=== PATIENT | female | born 1935 | race Caucasian/White ===

== ENCOUNTER 2018-08-11 16:52 | Emergency (ER) | payer OTHER ==
--- NOTE | 2018-08-11 16:58 | PDOC ---
History of Present Illness - General Chief Complaint: Laceration Stated Complaint: LEFT GAXIOLA LAC History Source: Patient, Family - History of Present Illness Initial Comments: 08/11/18 17:07 The patient is an 83 year old female with a PMH of HTN who presents to our ED s/ p fall. Patient was walking up a set of stairs from her backyard to her house when she caught her foot in between a crevice between the ground and the bottom of the stairs falling forward. Patient did not fall completely and was able to catch herself and stand upright. No head trauma, no LOC. Now complaining of a leg laceration. NKDA As per EMR, patient last evaluated in our ED in 2012 for a mechanical fall. Patient states that before today she has not fallen since that time, Past History - Past Medical History Allergies/Adverse Reactions: Allergies Allergy/AdvReac Type Severity Reaction Status Date / Time No Known Allergies Allergy Verified 08/11/18 16:53 Home Medications: Ambulatory Orders Enalapril Maleate [Vasotec] 30 mg PO DAILY 04/04/13 Metoprolol Succinate [Toprol XL] 50 mg PO DAILY 04/04/13 Montelukast Sodium [Singulair] 5 mg PO DAILY 07/31/14 HTN: Yes - Suicide/Smoking/Psychosocial Hx Smoking Status: No Smoking History: Never smoked Number of Cigarettes Smoked Daily: 0 Review of Systems - Review of Systems Constitutional: No: Chills, Fever HEENTM: No: Blurred Vision Respiratory: No: Cough, Shortness of Breath Cardiac (ROS): No: Chest Pain, Lightheadedness, Palpitations, Syncope ABD/GI: No: Blood Streaked Bowels, Constipated, Diarrhea, Vomiting : No: Burning, Dysuria *Physical Exam - Physical Exam General Appearance: Yes: Nourished, Appropriately Dressed HEENT: positive: Normal Voice, Hearing Grossly Normal Neck: positive: Trachea midline, Supple Respiratory/Chest: positive: Lungs Clear, Normal Breath Sounds Cardiovascular: positive: S1, S2. negative: JVD Vascular Pulses: Doralis-Pedis (L): 2+ Gastrointestinal/Abdominal: positive: Normal Bowel Sounds, Soft Extremity: positive: Other (7 cm L anterior gaxiola laceration, exposed fat w/out tendon exposure) Integumentary: positive: Normal Color, Dry, Warm Neurologic: positive: Fully Oriented, Alert Medical Decision Making - Medical Decision Making 08/11/18 17:15 83 year old female with LLE laceration s/p mechanical fall. No LOC or head trauma. Hypertensive (179/100) @ presentation. Will obtain LLE X-ray to r/o foriegn body and wound closure. Reassess. 08/11/18 17:34 Wet read of LLE XR shows no foreign body. 08/11/18 18:47 Wound closed using 3 (3.0 absorbable) deep dermal sutures and 13 (3.0 nylon) simple interrupted sutures. NVI pre and post closure. Patient tolerated procedure well with no complications. Patient remains hypertensive, asymptomatic (no XIONG, no blurry vision) will see PMD in the next 2 days for further evaluation. *DC/Admit/Observation/Transfer Diagnosis at time of Disposition: Leg laceration - Discharge Dispostion Disposition: HOME Condition at time of disposition: Good Decision to Admit order: No - Referrals Referrals: Prasanth Salgado MD [Primary Care Provider] - - Patient Instructions Printed Discharge Instructions: DI for Laceration Repair Additional Instructions: keep wound clean and dry for 48 hours. then you may wash with mild soap and water, apply bacitracin ointment twice daily. return for redness, swelling fever or any signs of infection. you should return to emergency room in 7 - 10 days for suture removal. take ibuprofen 400 mg every 8 hrs as needed for pain. you may also take tylenol 500 mg every 6 hrs as needed for pain. - Post Discharge Activity
[2018-08-11] MEDS ORDERED: DIPHTH,PERTUSS(ACELL),TET 0.5 ML DISP.SYRIN IM ONE (17:10)
[2018-08-11 17:12] VITALS: TEMP 97.7; BMI 28.3
--- NOTE | 2018-08-11 18:04 | PDOC ---
Attending Attestation - Resident Resident Name: GeorgeRadha - ED Attending Attestation I have performed the following: I have examined & evaluated the patient, The case was reviewed & discussed with the resident, I agree w/resident's findings & plan, Exceptions are as noted - HPI HPI: 08/11/18 18:01 83 yo F with s/p fall up stairs, sustained left gaxiola laceration. has been ambulating without difficulty. no head trauma. no other complaints of neck or back pain. no upper ext injury or pain. happened just prior to arrival. - Physicial Exam PE: 08/11/18 18:02 awake alert head atraumatic. lungs clear bilaterally heart rrr no mrg abd soft nt nd. ext wwp. left anterior lower mid gaxiola with large laceration 2 inches, horizontal into sub cut. no bony step off. distally n/v intact. pf/ df 5/5. 2 + dp/ pt pulses. no midline spinal tenderness. nuero speech clear. alert oriented x 3. moves all ext. facies symmetric. skin see description lac above. - Medical Decision Making 08/11/18 18:03 plan xray r/o underlying fx/ fb. lac repair layered closer after irrigation. sterile dressing. dc home.
[2018-08-11 18:53] VITALS: BP 190/100; PULSE 70
== END 2018-08-11 18:54 | disposition home or self-care (01) ==
LOC: FER 16:52
PROC: 0HQLXZZ Repair Left Lower Leg Skin, External Approach (ICD-10-PCS; principal; 2018-08-11)
DX: S81.812A Laceration without foreign body, left lower leg, initial encounter (principal); W10.9XXA Fall (on) (from) unspecified stairs and steps, initial encounter; Y93.89 Activity, other specified; Y92.008 Other place in unspecified non-institutional (private) residence as the place of occurrence of the external cause
CPT/HCPCS: 73590-TC-LT-FY; 90715; 99283-25

== ENCOUNTER 2018-08-25 11:58 | Emergency (ER) | payer OTHER ==
[2018-08-25 12:17] VITALS: BP 139/78; PULSE 78; TEMP 97.8; BMI 29.0
--- NOTE | 2018-08-25 14:04 | PDOC ---
Suture Removal/Wound Check HPI - History of Present Illness Chief Complaint: Suture/Staple Removal(Here) Stated Complaint: SUTURE REMOVAL LEFT LOWER LEG Time Seen by Provider: 08/25/18 13:11 History Source: Yes: Patient - Previous ED Treatment Type of procedure performed on last visit: Yes: Laceration Repair - Onset of Previous Treatment Comment:: 08/25/18 14:43 83f coming to the ED after 20 days to get sutures removed over her left gaxiola. She had 3 deep absorbable sutures placed in the ED as well as [address] Salgado on Monday who removed a few of them (she's not sure how many) but came back today to get the rest out as the site is red and swollen. She denies any pain, chills, fever or drainage. Past History - Past Medical History Allergies/Adverse Reactions: Allergies Allergy/AdvReac Type Severity Reaction Status Date / Time No Known Allergies Allergy Verified 08/25/18 12:00 Home Medications: Ambulatory Orders Enalapril Maleate [Vasotec] 30 mg PO DAILY 04/04/13 Metoprolol Succinate [Toprol XL] 50 mg PO DAILY 04/04/13 Cephalexin Monohydrate [Keflex -] 500 mg PO Q6H 7 Days #28 capsule 08/25/18 Sulfamethoxazole/Trimethoprim [Bactrim Ds -] 1 tab PO BID #14 tablet 08/25/18 COPD: No HTN: Yes Other medical history: SKIN CANCER - Suicide/Smoking/Psychosocial Hx Smoking Status: No Smoking History: Never smoked Number of Cigarettes Smoked Daily: 0 Information on smoking cessation initiated: No Hx Alcohol Use: Yes (social) Drug/Substance Use Hx: No Substance Use Type: Alcohol Suture Removal/Wound Check PE - Physical Exam Laceration/Wound Check Symptoms: reports: Redness (, necrotic tissue) Pain Intensity: 0 Location of Laceration/Wound: left: Leg Pain Radiation: None *Review of Systems - Review of Systems Able to Perform ROS?: Yes Constitutional: No: Symptoms Reported HEENTM: No: Symptoms Reported Respiratory: No: Symptoms reported Cardiac (ROS): No: Symptoms Reported ABD/GI: No: Symptoms Reported : No: Symptoms Reported Musculoskeletal: No: Symptoms Reported Integumentary: Yes: See HPI Neurological: No: Symptoms reported All Other Systems: Reviewed and Negative *Physical Exam - Vital Signs Last Vital Signs Temp Pulse Resp BP Pulse Ox 97.8 F 78 18 139/78 100 08/25/18 11:59 08/25/18 11:59 08/25/18 11:59 08/25/18 11:59 08/25/18 11:59 - Physical Exam General Appearance: Yes: Nourished, Appropriately Dressed. No: Apparent Distress HEENT: positive: EOMI, HILARIO, Normal ENT Inspection Respiratory/Chest: positive: Lungs Clear, Normal Breath Sounds. negative: Chest Tender, Respiratory Distress Cardiovascular: positive: Regular Rhythm, Regular Rate, S1, S2 Gastrointestinal/Abdominal: positive: Normal Bowel Sounds, Flat, Soft Integumentary: positive: Other (10cm diameter erythematous and warm skin, last 4 stitches removed from wound which is necrotic. ) Medical Decision Making - Medical Decision Making 08/25/18 14:50 4 final sutures removed at bedside. Due to the nature of the rash around the wound giving patient bactrim and keflex as well as Rx to cover for cellulitis. . Follow up with Dr. Salgado and return precautions. *DC/Admit/Observation/Transfer Diagnosis at time of Disposition: Visit for suture removal - Discharge Dispostion Disposition: HOME Condition at time of disposition: Stable Decision to Admit order: No - Prescriptions Prescriptions: Cephalexin Monohydrate [Keflex -] 500 mg PO Q6H 7 Days #28 capsule Sulfamethoxazole/Trimethoprim [Bactrim Ds -] 1 tab PO BID #14 tablet - Referrals - Patient Instructions Printed Discharge Instructions: DI for Suture Removal, DI for Surgical Site Infection Additional Instructions: Follow up with Dr. Salgado within the next 2-3 days. 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 Keep wound clean and dry. - Post Discharge Activity
[2018-08-25] MEDS ORDERED: CEPHALEXIN MONOHYDRATE 500 MG CAPSULE (UD) PO ONE (14:33)
[2018-08-25] MEDS ORDERED: SULFAMETHOXAZOLE/TRIMETHOPRIM 800MG/160MG D.S. TABLET PO ONE (14:34)
--- NOTE | 2018-08-25 14:39 | PDOC ---
Attending Attestation - Resident Resident Name: Donis Dotson - ED Attending Attestation I have performed the following: I have examined & evaluated the patient, The case was reviewed & discussed with the resident, I agree w/resident's findings & plan, Exceptions are as noted - HPI HPI: 08/25/18 14:38 83yo F hx HTN, L knee replacement presents to the ED for suture removal. Pt had sutures placed to L gaxiola lac 14 days ago. Had some of the sutures removed by Dr. Salgado 4 days ago but she states he was unable to remove all of them. She reports some redness around the wound but denies fevers, chills, weakness, N/V/ Denies CP, SOB, abd pain, headache, urinary sxs. - Physicial Exam PE: 08/25/18 14:43 GENERAL: Awake, alert, and fully oriented, in no acute distress EYES: PERRLA, EOMI, sclera anicteric, conjunctiva clear ENT: Oropharynx clear without exudates. Moist mucosa NECK: Normal ROM, supple, no lymphadenopathy, JVD, or masses LUNGS: Breath sounds equal, clear to auscultation bilaterally. No wheezes, and no crackles HEART: Regular rate and rhythm, normal S1 and S2, no murmurs, rubs or gallops ABDOMEN: Soft, nontender, normoactive bowel sounds. No guarding, no rebound. No masses EXTREMITIES: Normal range of motion, no clubbing or cyanosis. No cords. L mid anterior horizontal skin lac healing with necrotic and granulation tissue with some surrounding erythema and induration around the wound edges. No purulent DC. L knee with well healed vertical TKA scar. NEUROLOGICAL: Normal speech, cranial nerves intact, 5/5 strength in all 4 extremities, normal sensation to light touch in all 4 extremities, antalgic but steady gait SKIN: As noted above - Medical Decision Making 08/25/18 14:46 83yo F presents to the ED for suture removal. 3 more sutures removed, remaining sutures were removed previously by Dr. Salgado. Wound has some erythema and warmth surrounding it concerning for early cellulitis. No systemic signs of infection. Will treat with keflex/bactrim. Pt has f/u appt with Dr. Salgado on Monday for wound check, borders marked with surgical marker. Return precautions given, pt is clinically well appearing. Pt requests DC home. I discussed the physical exam findings, ancillary test results and final diagnoses with the patient. I answered all of the patient's questions. The patient was satisfied with the care received and felt comfortable with the discharge plan and treatment plan. The patient will call their primary care physician within 24 hours to arrange follow-up and will return to the Emergency Department with any new, persistent or worsening symptoms.
[2018-08-25] MEDS ORDERED: SULFAMETHOXAZOLE/TRIMETHOPRIM 800MG/160MG D.S. TABLET ONE (14:40)
[2018-08-25] MEDS ORDERED: CEPHALEXIN MONOHYDRATE 500 MG CAPSULE (UD) ONE (14:40)
== END 2018-08-25 14:45 | disposition home or self-care (01) ==
LOC: FER 11:58
DX: Z48.02 Encounter for removal of sutures (principal)
CPT/HCPCS: 99281-25